=== PATIENT | male | born 1965 | race Caucasian/White ===

== ENCOUNTER 2018-10-14 20:55 | Emergency (ER) | payer MEDICARE ==
[~2018-10-14] VITALS: Ht 177.8 cm; Wt 90.7 kg
[~2018-10-14 20:55] MED LIST: ACET325 PO; ALPR.25 PO; ALPR.5 PO; CEPH500 PO; CLIN300 PO; HYDACE5 PO; HYDMOR2 PO; HYDPAM50 PO; Keflex500 MG PO; LEVEMIR FL100 UNIT/1 SC; LOPE2C PO; LOSHYD PO; METF500 PO; METH10 PO; NAPR250 PO; Nicoderm Cq1 EAC1 TOP; OXYACE5T PO; OXYC10TA19 PO; PROM25 PO; RXPROM25 PO; RXSULTRIDS PO; SODIUM HYPOCHLORITE; SULTRIDS PO; TAMS.4ER PO; UNK ABX
[2018-10-14] MEDS ORDERED: AMPDEX5 PO (21:29)
[2018-10-14] MEDS ORDERED: PREG300 PO (21:29)
[2018-10-14] MEDS ORDERED: LOSARTAN POTASS25 MG PO (21:30)
== END 2018-10-14 23:10 | disposition home or self-care (01) ==
LOC: ER 20:55
DX: S61.011A Laceration without foreign body of right thumb without damage to nail, initial encounter (principal); I10 Essential (primary) hypertension; E11.9 Type 2 diabetes mellitus without complications; Z79.899 Other long term (current) drug therapy; Z87.442 Personal history of urinary calculi; W26.8XXA Contact with other sharp object(s), not elsewhere classified, initial encounter

== ENCOUNTER 2019-08-03 16:53 | Emergency (ER) | payer OTHER, MEDICARE ==
[~2019-08-03] VITALS: Ht 175.3 cm; Wt 99.8 kg
[~2019-08-03 16:53] MED LIST changes: +AMPDEX5 PO; +LOSARTAN POTASS25 MG PO; +PREG300 PO
[2019-08-03] MEDS ORDERED: ABAT250V (18:43)
[2019-08-03] MEDS ORDERED: LAMO100 PO (18:43)
== END 2019-08-03 18:56 | disposition home or self-care (01) ==
LOC: ER 16:53
DX: M54.5 Low back pain (principal); G89.29 Other chronic pain; F10.129 Alcohol abuse with intoxication, unspecified; I10 Essential (primary) hypertension; E11.9 Type 2 diabetes mellitus without complications; F17.210 Nicotine dependence, cigarettes, uncomplicated; Z88.6 Allergy status to analgesic agent; Z88.8 Allergy status to other drugs, medicaments and biological substances; Z79.899 Other long term (current) drug therapy; Z79.4 Long term (current) use of insulin; V47.5XXA Car driver injured in collision with fixed or stationary object in traffic accident, initial encounter
CPT/HCPCS: 72100; 82947; 99284-25

== ENCOUNTER 2020-06-02 05:09 | Emergency (ER) | payer MEDICARE ==
[~2020-06-02] VITALS: Ht 175.3 cm; Wt 86.2 kg
[~2020-06-02 05:09] MED LIST changes: +ABAT250V; +LAMO100 PO
[2020-06-02] MEDS ORDERED: Amphetamine Sal20 MG PO (05:41)
[2020-06-02] MEDS ORDERED: Lyrica300 MG (05:41)
[2020-06-02] MEDS ORDERED: LOSARTAN POTASS25 M2 PO (05:42)
[2020-06-02] MEDS ORDERED: LAMOTRIGINE100 M1 (05:42)
[2020-06-02] MEDS ORDERED: LEVEMIR FL100 UNIT/2 SC (05:42)
[2020-06-02 06:12] LABS: BASOPHILS ABSOLUTE AUTO 0.05 K/mm3 (0.00-0.23); BASOPHILS PERCENT AUTO 1 % (0-2); EOSINOPHILS ABSOLUTE AUTO 0.04 K/mm3 (0.00-0.68); EOSINOPHILS PERCENT AUTO 0 % (0-6); Hemoglobin 16.3 g/dL (13.5-17.5); IMMATURE GRAN ABSOLUTE AUTO 0.02 K/mm3 (0.00-0.10); IMMATURE GRAN PERCENT AUTO 0 % (0-1); LYMPHOCYTES ABSOLUTE AUTO 2.52 K/mm3 (0.84-5.20); LYMPHOCYTES PERCENT AUTO 26 % (21-46); MONOCYTES ABSOLUTE AUTO 0.97 K/mm3 (0.16-1.47); MONOCYTES PERCENT AUTO 10 % (4-13); Mean Corpuscular HGB 32.3 pg (26.0-34.0); Mean Corpuscular Volume 95 fL (80-100); Mean Platelet Volume 10.4 fL (9.1-12.4); NEUTROPHILS ABSOLUTE AUTO 6.05 K/mm3 (1.96-9.15); NEUTROPHILS PERCENT AUTO 63 % (41-73); Platelet Count 229 K/mm3 (150-400); RDW Coefficient Variation 12.7 % (11.7-14.2); RDW Standard Deviation 45.1 fL (35.1-46.3); Red Blood Cell Count 5.05 M/mm3 (4.30-5.90); White Blood Cell Count 9.65 K/mm3 (4.00-11.30)
[2020-06-02 06:28] LABS: Alanine Aminotransfer (ALT/SGP 45 U/L (12-78); Albumin, Blood 4.5 g/dL (3.4-5.0); Albumin/Globulin Ratio 1.3 (0.8-1.8); Alk Phos 110 U/L (50-136); Anion Gap 11 mmol/L (6-16); Aspartate Aminotrans (AST/SGOT 28 U/L (12-37); Bilirubin, Total 1.2 mg/dL (0.1-1.0); Blood Urea Nitrogen 23 mg/dL (8-24); Bun/Creatinine Ratio 23.4 (12.0-20.0); CO2, Blood 22 mmol/L (21-32); Calcium, Blood 9.8 mg/dL (8.5-10.1); Chloride, Blood 108 mmol/L (98-108); Creatinine, Blood 0.98 mg/dL (0.60-1.20); Ethanol (Alcohol), Blood, Med <3 mg/dL; Globulin, Blood 3.5 g/dL (2.2-4.0); Glomerular Filtration Rate >60 (60-); Glucose, Blood 105 mg/dL (70-99); Potassium, Blood 3.7 mmol/L (3.5-5.5); Salicylate 3.8 mg/dL (2.8-20.0); Sodium, Blood 141 mmol/L (136-145)
[2020-06-02 06:29] LABS: Acetaminophen, Random <2.0 ug/mL (10.0-30.0)
== END 2020-06-02 08:32 | disposition left against medical advice (07) ==
LOC: ER 05:09
PROVIDERS: Student in an Organized Health Care Education/Training Program
DX: R41.82 Altered mental status, unspecified (principal); I10 Essential (primary) hypertension; E11.9 Type 2 diabetes mellitus without complications; Z53.20 Procedure and treatment not carried out because of patient's decision for unspecified reasons; Z79.4 Long term (current) use of insulin; Z79.899 Other long term (current) drug therapy; Z88.6 Allergy status to analgesic agent; Z88.8 Allergy status to other drugs, medicaments and biological substances
CPT/HCPCS: 36415; 80053; 82947; 85025; 93005; 93010; 99285-25; G0480